=== PATIENT | female | born 1965 | race Native Hawaiian/Other Pacific Islander ===

== ENCOUNTER 2016-07-09 19:46 | Emergency (ER) | payer OTHER ==
[~2016-07-09] VITALS: Ht 167.6 cm; Wt 118.4 kg
[2016-07-09] MEDS ORDERED: POTASSIUM25 MEQ OR (20:11)
[2016-07-09] MEDS ORDERED: FURO40TA93 PO (20:11)
[2016-07-09] MEDS ORDERED: LYRICA150 MG OR (20:11)
[2016-07-09] MEDS ORDERED: PROTONIX20 MG PO (20:12)
[2016-07-09] MEDS ORDERED: BENICAR40 MG PO (20:12)
[2016-07-09] MEDS ORDERED: OXYCODONE30 MG PO (20:13)
[2016-07-09] MEDS ORDERED: XANAX2 MG OR (20:13)
[2016-07-09] MEDS ORDERED: METO50TA27 PO (20:14)
[2016-07-09 20:29] LABS: PLATELET COUNT 160 K/uL (152-353)
[2016-07-09 20:57] VITALS: BP 152/97; TEMP 97.9
== END 2016-07-09 20:58 | disposition home or self-care (01) ==
LOC: ED 19:46
DX: L03.115 Cellulitis of right lower limb (principal); S80.811A Abrasion, right lower leg, initial encounter; W54.8XXA Other contact with dog, initial encounter; Y92.098 Other place in other non-institutional residence as the place of occurrence of the external cause
CPT/HCPCS: 85027; 99283

== ENCOUNTER 2016-12-24 07:48 | Outpatient (CLI) | payer OTHER ==
[~2016-12-24 07:48] MED LIST: BENICAR40 MG PO; FURO40TA93 PO; LYRICA150 MG OR; METO50TA27 PO; OXYCODONE30 MG PO; POTASSIUM25 MEQ OR; PROTONIX20 MG PO; XANAX2 MG OR
[2016-12-24 08:10] LABS: PLATELET COUNT 192 K/uL (152-353)
[2016-12-24 08:32] LABS: POTASSIUM 3.5 mmol/L (3.6-5.2)
== END 2016-12-24 19:27 | disposition home or self-care (01) ==
LOC: LABW 07:48
PROVIDERS: Family Medicine
DX: I11.9 Hypertensive heart disease without heart failure (principal); Z13.220 Encounter for screening for lipoid disorders; D64.89 Other specified anemias; N95.1 Menopausal and female climacteric states; E11.9 Type 2 diabetes mellitus without complications; R53.83 Other fatigue
CPT/HCPCS: 36415; 80053; 80061; 82670; 83036; 84436; 84443; 84479; 85027

== ENCOUNTER 2017-08-01 14:00 | Outpatient (CLI) | payer OTHER ==
[2017-08-01] MEDS ORDERED: OMEPRAZOLE40 MG OR (14:21)
[2017-08-01] MEDS ORDERED: HYDROCHLOROT12.5 M1 PO (14:21)
[2017-08-01] MEDS ORDERED: LANTUS100 MG/ML SC (14:22)
[2017-08-01] MEDS ORDERED: CLON0.1T16 PO (14:23)
[2017-08-01] MEDS ORDERED: METO50TA27 PO (14:23)
== END 2017-08-01 14:04 | disposition short-term general hospital (02) ==
LOC: AMB 14:00
DX: G81.94 Hemiplegia, unspecified affecting left nondominant side (principal); R13.19 Other dysphagia; R55 Syncope and collapse
CPT/HCPCS: A0425; A0427

== ENCOUNTER 2017-08-01 14:04 | Observation (INO) | payer OTHER ==
[2017-08-01] VITALS (16 sets, daily range): BP systolic 91–143; BP diastolic 47–77; TEMP 97–97.9; Ht 170.2 cm; Wt 123.8 kg
[~2017-08-01] VITALS: Ht 170.2 cm; Wt 123.8 kg
[2017-08-01] MEDS ORDERED: OMEPRAZOLE40 MG OR (14:21)
[2017-08-01] MEDS ORDERED: HYDROCHLOROT12.5 M1 PO (14:21)
[2017-08-01] MEDS ORDERED: LANTUS100 MG/ML SC (14:22)
[2017-08-01] MEDS ORDERED: METO50TA27 PO (14:23)
[2017-08-01] MEDS ORDERED: CLON0.1T16 PO (14:23)
[2017-08-01 15:01] LABS: PLATELET COUNT 216 K/uL (152-353)
[2017-08-01 15:11] LABS: SODIUM 136 mmol/L (136-145)
[2017-08-01 15:27] LABS: PARTIAL THROMBOPLASTIN TIME 28.3 SECONDS (24.5-33.6)
[2017-08-02] VITALS (19 sets, daily range): BP systolic 86–151; BP diastolic 52–90; TEMP 98–98.6
[2017-08-02 06:47] LABS: PLATELET COUNT 184 K/uL (152-353)
[2017-08-02 06:59] LABS: POTASSIUM 3.6 mmol/L (3.6-5.2)
[2017-08-03] VITALS (11 sets, daily range): BP systolic 103–127; BP diastolic 54–89; TEMP 98–98.4
[2017-08-03 06:07] LABS: PLATELET COUNT 195 K/uL (152-353)
[2017-08-03 06:25] LABS: POTASSIUM 3.9 mmol/L (3.6-5.2)
== END 2017-08-02 12:30 | disposition home or self-care (01) ==
LOC: ED 14:04 → ICU 16:00
DX: R53.1 Weakness (principal); R13.19 Other dysphagia; R55 Syncope and collapse; I10 Essential (primary) hypertension; E66.01 Morbid (severe) obesity due to excess calories; K21.9 Gastro-esophageal reflux disease without esophagitis; R10.11 Right upper quadrant pain; E11.9 Type 2 diabetes mellitus without complications; Z79.899 Other long term (current) drug therapy
CPT/HCPCS: 36415; 51702; 80053; 80061; 80307; 81000; 82550; 82962; 84484; 85027; 85610; 85730; 87077; 87086; 87088; 87186; 93005; 94760; 96360; 96372; 99220; 99285; G0378; J0744; J1650; J1815; J7120

== ENCOUNTER 2017-08-02 12:30 | Inpatient (IN) | payer OTHER ==
[~2017-08-02 12:30] MED LIST changes: +CLON0.1T16 PO; +HYDROCHLOROT12.5 M1 PO; +LANTUS100 MG/ML SC; +OMEPRAZOLE40 MG OR
--- NOTE | 2017-08-03 13:35 | NUR ---
PT REFUSING TO STAY AND REFUSING ANY OTHER TX. PT INSTRUCTED THE RISK OF LEAVING AMA. PT STATES SHE DOES NOT CARE. SHE SAYS SHE WANTS TO GO TO DR. KNUTSON [place] AND IS WANTING TO SMOKE. ROJELIO FREITAS AWARE. IV D/C'D AND JUAREZ D/C'D. AMA PAPER SIGNED. PT WHEELED OUT TO VEHICLE BY FAMILY.
== END 2017-08-03 13:40 | disposition left against medical advice (07) | DRG 948 ==
LOC: ICU 12:30 → MED/SURG 12:30
PROVIDERS: ADMIT Emergency Medicine
DX: R53.1 Weakness (principal); R13.19 Other dysphagia; R10.11 Right upper quadrant pain; I10 Essential (primary) hypertension; R55 Syncope and collapse; E66.01 Morbid (severe) obesity due to excess calories; K21.9 Gastro-esophageal reflux disease without esophagitis; E11.9 Type 2 diabetes mellitus without complications

== ENCOUNTER 2017-08-31 11:12 | Outpatient (CLI) | payer OTHER | END 2017-08-31 22:30 | disposition home or self-care (01) | LOC: CT 11:12 | DX: D38.0 Neoplasm of uncertain behavior of larynx (principal) | CPT/HCPCS: Q9963 ==

== ENCOUNTER 2017-09-24 21:40 | Emergency (ER) | payer OTHER ==
[~2017-09-24] VITALS: Ht 175.3 cm; Wt 113.4 kg
[2017-09-24] MEDS ORDERED: BENICAR40 MG PO (22:07)
[2017-09-24] MEDS ORDERED: ALPR0.5T24 PO (22:08)
[2017-09-24] MEDS ORDERED: FURO40TA93 PO (22:08)
[2017-09-24] MEDS ORDERED: OXYCODONE30 MG PO (22:09)
[2017-09-24] MEDS ORDERED: BREO ELLIPTA 201 INH IN (22:10)
[2017-09-24] MEDS ORDERED: ALBUTEROL0.083 % IN (22:10)
[2017-09-24 23:19] LABS: PLATELET COUNT 164 K/uL (152-353)
[2017-09-24 23:27] LABS: POTASSIUM 3.5 mmol/L (3.6-5.2)
[2017-09-25 00:25] VITALS: BP 147/70; TEMP 98.1
== END 2017-09-25 00:31 | disposition home or self-care (01) ==
LOC: ED 21:40
DX: R60.9 Edema, unspecified (principal); M79.605 Pain in left leg; M79.604 Pain in right leg; I50.9 Heart failure, unspecified
CPT/HCPCS: 80053; 83880; 85027; 99283

== ENCOUNTER 2017-11-06 13:02 | Emergency (ER) | payer OTHER ==
[~2017-11-06] VITALS: Ht 162.6 cm; Wt 109.8 kg
[~2017-11-06 13:02] MED LIST changes: +ALBUTEROL0.083 % IN; +ALPR0.5T24 PO; +BREO ELLIPTA 201 INH IN
[2017-11-06 15:50] VITALS: BP 160/72; TEMP 98.8
== END 2017-11-06 15:56 | disposition home or self-care (01) ==
LOC: ED 13:02
DX: M25.561 Pain in right knee (principal); W18.39XA Other fall on same level, initial encounter; Y92.89 Other specified places as the place of occurrence of the external cause
CPT/HCPCS: 96372; 99282; J1885; L1830

== ENCOUNTER 2017-12-07 14:21 | Outpatient (CLI) | payer OTHER ==
[2017-12-07] MEDS ORDERED: HYDR25TA60 PO (15:14)
[2017-12-07] MEDS ORDERED: POT CHLORIDE10 MEQ PO (15:15)
[2017-12-07] MEDS ORDERED: METO50TA27 PO (15:17)
[2017-12-07] MEDS ORDERED: OXYCODONE30 MG PO (15:19)
[2017-12-07] MEDS ORDERED: ZESTRIL40 MG OR (15:19)
== END 2017-12-07 14:23 | disposition short-term general hospital (02) ==
LOC: AMB 14:21
DX: R06.09 Other forms of dyspnea (principal)
CPT/HCPCS: A0425; A0427

== ENCOUNTER 2017-12-07 14:27 | Emergency (ER) | payer OTHER ==
[~2017-12-07] VITALS: Ht 162.6 cm; Wt 109.8 kg
[2017-12-07 15:07] LABS: PLATELET COUNT 211 K/uL (152-353)
[2017-12-07] MEDS ORDERED: HYDR25TA60 PO (15:14)
[2017-12-07] MEDS ORDERED: POT CHLORIDE10 MEQ PO (15:15)
[2017-12-07] MEDS ORDERED: METO50TA27 PO (15:17)
[2017-12-07] MEDS ORDERED: OXYCODONE30 MG PO (15:19)
[2017-12-07] MEDS ORDERED: ZESTRIL40 MG OR (15:19)
[2017-12-07 16:00] VITALS: BP 133/52; TEMP 98
== END 2017-12-07 16:00 | disposition home or self-care (01) ==
LOC: ED 14:27
PROVIDERS: Family Medicine
DX: J44.1 Chronic obstructive pulmonary disease with (acute) exacerbation (principal)
CPT/HCPCS: 80053; 85027; 94664; 99283

== ENCOUNTER 2018-01-07 12:15 | Emergency (ER) | payer OTHER ==
[~2018-01-07] VITALS: Ht 162.6 cm; Wt 109.8 kg
[~2018-01-07 12:15] MED LIST changes: +HYDR25TA60 PO; +POT CHLORIDE10 MEQ PO; +ZESTRIL40 MG OR
[2018-01-07 12:58] VITALS: BP 107/62; TEMP 97.8
== END 2018-01-07 13:01 | disposition home or self-care (01) ==
LOC: ED 12:15
DX: J44.9 Chronic obstructive pulmonary disease, unspecified (principal); R09.02 Hypoxemia
CPT/HCPCS: 99281

== ENCOUNTER 2018-01-08 17:34 | Emergency (ER) | payer OTHER ==
[~2018-01-08] VITALS: Ht 162.6 cm; Wt 109.8 kg
[2018-01-08 18:51] LABS: PLATELET COUNT 226 K/uL (152-353)
[2018-01-08 19:00] LABS: POTASSIUM 3.7 mmol/L (3.6-5.2)
[2018-01-08 20:09] VITALS: BP 145/66; TEMP 98.6
== END 2018-01-08 20:09 | disposition home or self-care (01) ==
LOC: ED 17:34
PROVIDERS: Family Medicine
DX: J44.1 Chronic obstructive pulmonary disease with (acute) exacerbation (principal)
CPT/HCPCS: 36415; 80053; 85027; 96372; 99283; J2930

== ENCOUNTER 2018-01-11 12:25 | Emergency (ER) | payer OTHER ==
[~2018-01-11] VITALS: Ht 167.6 cm; Wt 109.8 kg
[2018-01-11 12:35] VITALS: TEMP 96.8
[2018-01-11 13:46] LABS: PLATELET COUNT 217 K/uL (152-353)
[2018-01-11 13:59] LABS: POTASSIUM 3.6 mmol/L (3.6-5.2)
[2018-01-11 15:29] VITALS: BP 122/78
== END 2018-01-11 15:29 | disposition home or self-care (01) ==
LOC: ED 12:25
DX: J44.1 Chronic obstructive pulmonary disease with (acute) exacerbation (principal)
CPT/HCPCS: 36600; 80053; 81000; 82805; 85027; 87077; 87086; 87088; 87186; 94664; 96372; 99283; J2930

== ENCOUNTER 2018-02-17 16:15 | Emergency (ER) | payer OTHER ==
[~2018-02-17] VITALS: Ht 167.6 cm; Wt 109.8 kg
[2018-02-17 17:09] LABS: PLATELET COUNT 172 K/uL (152-353)
[2018-02-17 19:01] LABS: POTASSIUM 3.7 mmol/L (3.6-5.2); SODIUM 142 mmol/L (136-145)
[2018-02-17 19:51] VITALS: BP 107/66; TEMP 98.1
== END 2018-02-17 19:54 | disposition home or self-care (01) ==
LOC: ED 16:15
DX: J44.1 Chronic obstructive pulmonary disease with (acute) exacerbation (principal)
CPT/HCPCS: 36415; 80053; 81000; 82550; 82553; 84484; 85027; 87081; 87880; 93005; 94664; 99284

== ENCOUNTER 2018-02-27 15:59 | Emergency (ER) | payer OTHER ==
[~2018-02-27] VITALS: Ht 167.6 cm; Wt 109.8 kg
[2018-02-27 16:36] LABS: PLATELET COUNT 149 K/uL (152-353)
[2018-02-27 16:42] LABS: POTASSIUM 4.1 mmol/L (3.6-5.2); SODIUM 141 mmol/L (136-145)
[2018-02-27 17:27] VITALS: BP 109/68; TEMP 100
== END 2018-02-27 17:27 | disposition home or self-care (01) ==
LOC: ED 15:59
PROVIDERS: Family Medicine
DX: R07.89 Other chest pain (principal); M94.0 Chondrocostal junction syndrome [Tietze]; J44.9 Chronic obstructive pulmonary disease, unspecified; R06.02 Shortness of breath
CPT/HCPCS: 36415; 80053; 81000; 83880; 84484; 85027; 93005; 94664; 99283; J2930

== ENCOUNTER 2019-04-12 20:08 | Outpatient (CLI) | payer OTHER | END 2019-04-12 20:11 | disposition short-term general hospital (02) | LOC: AMB 20:08 | DX: R07.89 Other chest pain (principal); M79.605 Pain in left leg | CPT/HCPCS: A0425; A0429 ==

== ENCOUNTER 2019-04-12 20:12 | Emergency (ER) | payer OTHER ==
[~2019-04-12] VITALS: Ht 167.6 cm; Wt 109.8 kg
[2019-04-12 20:21] VITALS: BP 117/59; TEMP 97.5
[2019-04-12 21:19] LABS: PLATELET COUNT 246 K/uL (152-353)
[2019-04-12 21:24] LABS: POTASSIUM 3.9 mmol/L (3.6-5.2); SODIUM 141 mmol/L (136-145)
== END 2019-04-12 22:34 | disposition home or self-care (01) ==
LOC: ED 20:16
PROVIDERS: Emergency Medicine
DX: M17.12 Unilateral primary osteoarthritis, left knee (principal); Z79.899 Other long term (current) drug therapy
CPT/HCPCS: 80053; 80307; 82962; 83735; 84484; 85027; 93005; 94664; 96360; 96374; 96375; 96376; 99284; J2310; J7120

== ENCOUNTER 2022-04-26 18:20 | Emergency (ER) | payer OTHER ==
[~2022-04-26] VITALS: Ht 167.6 cm; Wt 109.8 kg
[2022-04-26 19:00] LABS: PLATELET COUNT 76 K/uL (152-353)
[2022-04-26 19:06] LABS: POTASSIUM 3.4 mmol/L (3.6-5.2)
[2022-04-26 19:20] LABS: PARTIAL THROMBOPLASTIN TIME 25.1 SECONDS (24.5-33.6)
[2022-04-26 20:45] VITALS: BP 128/69; TEMP 98.7
== END 2022-04-26 21:10 | disposition short-term general hospital (02) ==
LOC: ED 18:20
PROVIDERS: Emergency Medicine
DX: I63.9 Cerebral infarction, unspecified (principal); R47.81 Slurred speech; F17.210 Nicotine dependence, cigarettes, uncomplicated
CPT/HCPCS: 36415; 80053; 83880; 84484; 85027; 85379; 85610; 85730; 93005; 99285